=== PATIENT | female | born 1945 | race Caucasian/White ===

== ENCOUNTER 2017-12-15 15:44 | Emergency (ER) | payer MEDICARE, MEDICAID ==
[~2017-12-15] VITALS: Ht 165.1 cm; Wt 100.0 kg
[2017-12-15 15:50] VITALS: BP 95/60
[2017-12-15] MEDS ORDERED: SODIUM CHLORIDE 0.9% 1,000 ML IV ONE (16:42)
[2017-12-17] MEDS ORDERED: ATOR40TA70 PO (22:50)
[2017-12-17] MEDS ORDERED: GLIP5TAB12 PO (22:50)
[2017-12-17] MEDS ORDERED: PANT40TA4 PO (22:50)
[2017-12-17] MEDS ORDERED: LABE200T28 PO (22:50)
[2017-12-17] MEDS ORDERED: METF500T6 PO (22:50)
== END 2017-12-15 17:26 | disposition left against medical advice (07) ==
LOC: ER 16:04
DX: T73.0XXA Starvation, initial encounter (principal); R53.1 Weakness; R68.89 Other general symptoms and signs; E11.9 Type 2 diabetes mellitus without complications; I10 Essential (primary) hypertension; J44.9 Chronic obstructive pulmonary disease, unspecified; X58.XXXA Exposure to other specified factors, initial encounter
CPT/HCPCS: 93005; 99283; J7030

== ENCOUNTER 2017-12-15 17:31 | Emergency (ER) | payer MEDICARE, MEDICAID ==
[~2017-12-15] VITALS: Ht 157.5 cm; Wt 82.0 kg
[2017-12-15 21:35] VITALS: BP 115/67
[2017-12-15 21:52] LABS: BASOPHILS % 1.2 % (0.0-2.0); EOSINOPHILS % 2.9 % (0.0-5.0); HEMATOCRIT. 37.7 % (36.0-48.0); HEMOGLOBIN. 12.9 g/dL (12.0-16.0); LYMPHOCYTES % 30.2 % (20.0-50.0); MEAN CORPUSCULAR HEMOGLOBIN 30.5 pg (28.0-32.0); MEAN CORPUSCULAR VOLUME 89.5 fL (81.0-99.0); MEAN PLATELET VOLUME 8.2 fl (7.4-10.4); MONOCYTES % 7.2 % (2.0-8.0); NEUTROPHILS % 58.5 % (40.0-76.0); PLATELET 270 x1000/uL (130-400); RED BLOOD CELL COUNT 4.22 mill/uL (4.2-5.4); RED CELL DISTRIBUTION WIDTH 14.8 % (11.6-14.6)
[2017-12-15 21:55] LABS: CHLORIDE 108 mEq/L (98-107)
[2017-12-15 22:00] LABS: ETHANOL BLOOD < 10 mg/dL
[2017-12-15 22:31] LABS: CLARITY URINE CLEAR (CLEAR); COLOR URINE YELLOW (YELLOW); KETONES URINE TRACE (NEGATIVE); LEUKOCYTE ESTERASE URINE NEGATIVE (NEGATIVE); NITRITE URINE NEGATIVE (NEGATIVE); OCCULT BLOOD URINE NEGATIVE (NEGATIVE); PROTEIN URINE 3+ (NEGATIVE); SPECIFIC GRAVITY URINE 1.024 (1.005-1.030); UROBILINOGEN URINE 0.2 E.U./dL (0.2-1.0)
[2017-12-15 22:45] LABS: *AMPHETAMINES SCREEN URINE NEGATIVE (NEGATIVE); *BARBITURATES SCREEN URINE NEGATIVE (NEGATIVE); *BENZODIAZEPINES SCREEN URINE NEGATIVE (NEGATIVE); CANNABINOID URINE SCREEN NEGATIVE (NEGATIVE); OPIATES URINE SCREEN NEGATIVE (NEGATIVE); PHENCYCLIDINE URINE SCREEN NEGATIVE (NEGATIVE)
[2017-12-15 22:46] LABS: *COCAINE SCREEN URINE NEGATIVE (NEGATIVE); METHADONE URINE SCREEN NEGATIVE (NEGATIVE)
[2017-12-17] MEDS ORDERED: ATOR40TA70 PO (22:50)
[2017-12-17] MEDS ORDERED: LABE200T28 PO (22:50)
[2017-12-17] MEDS ORDERED: GLIP5TAB12 PO (22:50)
[2017-12-17] MEDS ORDERED: METF500T6 PO (22:50)
[2017-12-17] MEDS ORDERED: PANT40TA4 PO (22:50)
== END 2017-12-15 22:55 | disposition home or self-care (01) ==
LOC: ER 17:31
DX: T67.5XXA Heat exhaustion, unspecified, initial encounter (principal); J44.9 Chronic obstructive pulmonary disease, unspecified; I10 Essential (primary) hypertension; E11.9 Type 2 diabetes mellitus without complications; X58.XXXA Exposure to other specified factors, initial encounter; Y93.89 Activity, other specified; Y92.89 Other specified places as the place of occurrence of the external cause; Y99.8 Other external cause status
CPT/HCPCS: 36415; 71045; 80053; 80305; 81003; 85025; 99285; G0482

== ENCOUNTER 2017-12-18 14:57 | Emergency (ER) | payer MEDICARE, MEDICAID ==
[~2017-12-18] VITALS: Ht 157.5 cm; Wt 80.0 kg
[~2017-12-18 14:57] MED LIST: ATOR40TA70 PO; GLIP5TAB12 PO; LABE200T28 PO; METF500T6 PO; PANT40TA4 PO
[2017-12-18 15:11] VITALS: BP 156/61
[2017-12-18 16:22] LABS: CHLORIDE 105 mEq/L (98-107)
[2017-12-18 17:00] LABS: HEMATOCRIT. 36.9 % (36.0-48.0); HEMOGLOBIN. 12.2 g/dL (12.0-16.0); MEAN CORPUSCULAR HEMOGLOBIN 29.7 pg (28.0-32.0); MEAN CORPUSCULAR VOLUME 89.4 fL (81.0-99.0); MEAN PLATELET VOLUME 8.7 fl (7.4-10.4); PLATELET 308 x1000/uL (130-400); RED BLOOD CELL COUNT 4.13 mill/uL (4.2-5.4); RED CELL DISTRIBUTION WIDTH 14.7 % (11.6-14.6)
[2017-12-18 17:02] LABS: PROTHROMBIN TIME 10.7 sec (9.4-11.6)
[2017-12-18 17:27] LABS: PLATELET ESTIMATE NORMAL
== END 2017-12-18 17:01 | disposition left against medical advice (07) ==
LOC: ER 16:00 → EDBEDREQ 16:23 → ER 17:01 → CANBEDREQ 18:58
DX: R55 Syncope and collapse (principal); I10 Essential (primary) hypertension; E11.9 Type 2 diabetes mellitus without complications; E03.9 Hypothyroidism, unspecified
CPT/HCPCS: 36415; 80053; 83880; 84484; 85025; 85610; 93005; 99285

== ENCOUNTER 2017-12-18 19:01 | Emergency (ER) | payer MEDICARE, MEDICAID ==
[~2017-12-18] VITALS: Ht 157.5 cm; Wt 77.0 kg
[2017-12-19 03:00] VITALS: BP 169/64
== END 2017-12-19 03:06 | disposition home or self-care (01) ==
LOC: ER 19:01
DX: T67.0XXA Heatstroke and sunstroke, initial encounter (principal); E11.9 Type 2 diabetes mellitus without complications; I10 Essential (primary) hypertension; E03.9 Hypothyroidism, unspecified; F17.200 Nicotine dependence, unspecified, uncomplicated; Z98.890 Other specified postprocedural states; X30.XXXA Exposure to excessive natural heat, initial encounter; Y93.89 Activity, other specified; Y92.89 Other specified places as the place of occurrence of the external cause; Y99.8 Other external cause status
CPT/HCPCS: 99283

== ENCOUNTER 2017-12-21 13:49 | Emergency (ER) | payer MEDICARE, MEDICAID ==
[~2017-12-21] VITALS: Ht 157.5 cm; Wt 77.0 kg
[2017-12-21 14:15] VITALS: BP 145/81
== END 2017-12-21 16:30 | disposition left against medical advice (07) ==
LOC: ER 13:49
DX: Z04.8 Encounter for examination and observation for other specified reasons (principal); R55 Syncope and collapse
CPT/HCPCS: 99281

== ENCOUNTER 2017-12-21 18:35 | Emergency (ER) | payer MEDICARE, MEDICAID ==
[~2017-12-21] VITALS: Ht 157.5 cm; Wt 77.0 kg
[2017-12-21 19:00] VITALS: BP 143/92
== END 2017-12-22 01:06 | disposition left against medical advice (07) ==
LOC: ER 19:32
DX: R53.1 Weakness (principal); Z53.21 Procedure and treatment not carried out due to patient leaving prior to being seen by health care provider